=== PATIENT | female | born 1940 | race Caucasian/White ===

== ENCOUNTER → 2022-02-16 09:26 | Outpatient (CLI) | payer MEDICARE, BC, SELFPAY ==
[2022-02-03 19:38] LABS: Anion Gap 17.4 mEq/L (5-15); Blood Urea Nitrogen 16 mg/dl (7-17); Calcium 9.6 mg/dl (8.4-10.2); Carbon Dioxide 26 mmol/L (22.0-30.0); Chloride 102 mmol/L (98-107); Chol/HDL Ratio 2.6 (1-3.5); Cholesterol 176 mg/dl (140-200); Estimated Glomerular Filt Rate 60 ml/min (>60); GFR (African American) 73 ML/MIN (>60); Glucose 85 mg/dl (74-100); HDL Cholesterol 68 mg/dl (40-60); Potassium 4.4 mmoL/L (3.5-5.1); Sodium 141 mmol/L (136-145); Triglycerides 268 mg/dl (30-150); VLDL Cholesterol 54 mg/dL (0-40)
[2022-02-03 19:46] LABS: Creatinine,Urine Random 307 mg/dL (Not Estab.)
[2022-02-03 19:48] LABS: Microalbumin/Creatinine Ratio 18.1
[2022-02-03 19:49] LABS: Direct LDL Cholesterol 63.11 mg/dL (100-129)
[2022-02-03 20:09] LABS: Thyroid Stimulating Hormone 2.09 uIU/mL (0.465-4.68)
[2022-02-03 20:28] LABS: Vitamin B12 325 pg/mL (239-931)
== END ==
PROVIDERS: PCP Family Medicine; Visit Provider Family Medicine
DX: M10.9 Gout, unspecified; I10 Essential (primary) hypertension; E53.8 Deficiency of other specified B group vitamins; R73.01 Impaired fasting glucose
CPT/HCPCS: 80048; 80061; 82043; 82570; 82607; 84443; 84550

== ENCOUNTER → 2022-08-17 10:01 | Outpatient (CLI) | payer MEDICARE, BC, SELFPAY | PROVIDERS: PCP Family Medicine; Visit Provider Family Medicine | DX: R01.1 Cardiac murmur, unspecified (principal) | CPT/HCPCS: 93306 ==